=== PATIENT | female | born 1995 | race Caucasian/White ===

== ENCOUNTER 2018-12-22 01:52 | Emergency (ER) | payer MEDICAID ==
[~2018-12-22] VITALS: Ht 157.5 cm; Wt 39.9 kg
[2018-12-22 01:59] VITALS: Ht 157.5 cm; Wt 39.9 kg
[2018-12-22 04:01] VITALS: BP 100/68
== END 2018-12-22 03:55 | disposition home or self-care (01) ==
LOC: ED 01:52
DX: N39.0 Urinary tract infection, site not specified (principal); R25.2 Cramp and spasm; M54.6 Pain in thoracic spine; V49.49XA Driver injured in collision with other motor vehicles in traffic accident, initial encounter; Y93.I9 Activity, other involving external motion; Y92.413 State road as the place of occurrence of the external cause; Y99.8 Other external cause status
CPT/HCPCS: 72072

== ENCOUNTER 2019-02-15 21:49 | Emergency (ER) | payer MEDICAID ==
[~2019-02-15] VITALS: Ht 157.5 cm; Wt 42.8 kg
[2019-02-15 22:06] VITALS: Ht 157.5 cm; Wt 42.8 kg
[2019-02-16 00:55] VITALS: BP 121/89
== END 2019-02-16 00:55 | disposition home or self-care (01) ==
LOC: ED 21:49
DX: L02.511 Cutaneous abscess of right hand (principal)